=== PATIENT | male | born 1965 | race African-American/Black ===

== ENCOUNTER 2020-12-08 22:16 | Inpatient (IN) | payer MEDICAID ==
[~2020-12-08] VITALS: Ht 175.3 cm; Wt 127.0 kg
[2020-12-08 22:20] VITALS: BP 142/79
[2020-12-08] MEDS ORDERED: ONDANSETRON HCL 4MG/2ML INJ IV PRN (23:30)
[2020-12-08] MEDS ORDERED: CLONIDINE 0.1MG TABLET PO PRN (23:30)
[2020-12-08] MEDS ORDERED: HYDROCODONE/ACETAMINOPHEN 5/325MG TABLET PO PRN (23:30)
[2020-12-08] MEDS ORDERED: ACETAMINOPHEN 325MG TABLET PO PRN ×2 (23:30)
[2020-12-08] MEDS ORDERED: NON FORMULARY PATIENT HOME MED XX SCH (23:30)
[2020-12-08] MEDS ORDERED: NALOXONE HCL 0.4MG/ML VIAL IV PRN (23:45)
[2020-12-09] MEDS ORDERED: ATOR-2 PO (05:43)
[2020-12-09] MEDS ORDERED: ESCI-7 PO (05:43)
[2020-12-09] MEDS ORDERED: ERGO500013 (05:43)
[2020-12-09] MEDS ORDERED: ALBU90AE INH (05:43)
[2020-12-09] MEDS ORDERED: TEMA15CA PO (05:43)
[2020-12-09] MEDS ORDERED: FINA5TAB11 PO (05:43)
[2020-12-09] MEDS ORDERED: AMLO5TAB88 PO (05:43)
[2020-12-09] MEDS ORDERED: FOLI-43 PO (05:43)
[2020-12-09] MEDS ORDERED: LEVE500T19 PO (05:43)
[2020-12-09] MEDS ORDERED: DOXE10CA2 PO (05:43)
[2020-12-09] MEDS ORDERED: TAMS-11 PO (05:43)
[2020-12-09] MEDS ORDERED: LISI-186 PO (05:43)
[2020-12-09 07:01] LABS: CHLORIDE 109 mEq/L (98-107)
[2020-12-09 07:33] LABS: BASOPHILS % 0.6 % (0.0-2.0); EOSINOPHILS % 4.8 % (0.0-5.0); HEMATOCRIT. 36.8 % (42.0-52.0); HEMOGLOBIN. 12.1 g/dL (14.0-18.0); LYMPHOCYTES % 45.4 % (20.0-50.0); MEAN CORPUSCULAR HEMOGLOBIN 28.1 pg (28.0-32.0); MEAN CORPUSCULAR VOLUME 85.3 fL (80.0-94.0); MEAN PLATELET VOLUME 7.9 fl (7.4-10.4); MONOCYTES % 12.5 % (2.0-8.0); NEUTROPHILS % 36.7 % (40.0-76.0); PLATELET 219 x1000/uL (130-400); RED BLOOD CELL COUNT 4.31 mill/uL (4.7-6.1); RED CELL DISTRIBUTION WIDTH 13.9 % (11.6-14.6)
[2020-12-09 07:54] VITALS: BP 124/71
[2020-12-09] MEDS: ENOXAPARIN 30MG/0.3ML SYR SUBCUT SCH ×2 (08:39→21:02)
[2020-12-09] MEDS: LIDOCAINE 5% PATCH TOP SCH (08:39)
[2020-12-09] MEDS: CLOPIDOGREL 75MG TABLET PO SCH (08:40)
[2020-12-09] MEDS: FINASTERIDE 5MG TABLET PO SCH (08:40)
[2020-12-09] MEDS: LEVETIRACETAM 500MG TABLET PO SCH ×2 (08:40→21:00)
[2020-12-09] MEDS: LISINOPRIL 2.5MG TABLET PO SCH (08:40)
[2020-12-09] MEDS: ASPIRIN 81MG TABLET PO SCH (08:41)
[2020-12-09] MEDS: TAMSULOSIN HCL 0.4MG SR CAPSULE PO SCH (08:41)
[2020-12-09] MEDS ORDERED: ENOXAPARIN 40MG/0.4ML SYR SUBCUT SCH (09:00)
[2020-12-09] MEDS ORDERED: LIDOCAINE 5% PATCH TOP SCH (09:00)
[2020-12-09 20:00] VITALS: BP 139/90
[2020-12-09] MEDS: ATORVASTATIN CALCIUM 40MG TABLET PO SCH (21:00)
[2020-12-09] MEDS: DOXEPIN HCL 10MG CAPSULE PO SCH (21:01)
[2020-12-10 07:53] VITALS: BP 142/61
[2020-12-10 08:52] LABS: CHLORIDE 110 mEq/L (98-107)
[2020-12-10 08:59] LABS: TOTAL IRON BINDING CAPACITY 266 ug/dL (250-450)
[2020-12-10 09:00] LABS: LDL CHOLESTEROL 45 mg/dL (5-100)
[2020-12-10 09:01] LABS: HDL CHOLESTEROL 48 mg/dL (40-59)
[2020-12-10 09:05] LABS: BASOPHILS % 0.4 % (0.0-2.0); EOSINOPHILS % 5.1 % (0.0-5.0); HEMATOCRIT. 36.7 % (42.0-52.0); HEMOGLOBIN. 12.3 g/dL (14.0-18.0); LYMPHOCYTES % 45.6 % (20.0-50.0); MEAN CORPUSCULAR HEMOGLOBIN 28.3 pg (28.0-32.0); MEAN CORPUSCULAR VOLUME 84.5 fL (80.0-94.0); MEAN PLATELET VOLUME 8.1 fl (7.4-10.4); MONOCYTES % 10.9 % (2.0-8.0); PLATELET 232 x1000/uL (130-400); RED BLOOD CELL COUNT 4.35 mill/uL (4.7-6.1); RED CELL DISTRIBUTION WIDTH 13.7 % (11.6-14.6)
[2020-12-10] MEDS: ASPIRIN 81MG TABLET PO SCH (09:08)
[2020-12-10] MEDS: CLOPIDOGREL 75MG TABLET PO SCH (09:08)
[2020-12-10] MEDS: TAMSULOSIN HCL 0.4MG SR CAPSULE PO SCH (09:08)
[2020-12-10] MEDS: FINASTERIDE 5MG TABLET PO SCH (09:09)
[2020-12-10] MEDS: LEVETIRACETAM 500MG TABLET PO SCH ×2 (09:09→21:48)
[2020-12-10] MEDS: LISINOPRIL 2.5MG TABLET PO SCH (09:10)
[2020-12-10] MEDS: LIDOCAINE 5% PATCH TOP SCH (09:10)
[2020-12-10] MEDS: ENOXAPARIN 30MG/0.3ML SYR SUBCUT SCH ×2 (09:11→21:47)
[2020-12-10 09:23] LABS: VITAMIN B12 SERUM 511 pg/mL (211-911)
[2020-12-10 09:26] LABS: FOLIC ACID (FOLATE) SERUM > 20.00 ng/mL (>5.38)
[2020-12-10 10:05] LABS: FERRITIN 216 ng/mL (22-322); PROSTRATE SPECIFIC AG TOTAL 0.28 ng/mL (0.0-4.0)
[2020-12-10] MEDS ORDERED: CYANOCOBALAMIN 1000MCG/ML VIAL IM NR (13:00)
[2020-12-10 20:00] VITALS: BP 119/64
[2020-12-10] MEDS: MUPIROCIN 2% OINT 22GM NS SCH (21:47)
[2020-12-10] MEDS: ATORVASTATIN CALCIUM 40MG TABLET PO SCH (21:48)
[2020-12-10] MEDS: DOXEPIN HCL 10MG CAPSULE PO SCH (21:48)
[2020-12-11] MEDS ORDERED: CYANOCOBALAMIN 1000MCG/ML VIAL IM NR (06:45)
[2020-12-11 07:42] VITALS: BP 131/71
[2020-12-11] MEDS: FINASTERIDE 5MG TABLET PO SCH (08:25)
[2020-12-11] MEDS: LISINOPRIL 2.5MG TABLET PO SCH (08:25)
[2020-12-11] MEDS: LEVETIRACETAM 500MG TABLET PO SCH ×2 (08:25→21:20)
[2020-12-11] MEDS: CLOPIDOGREL 75MG TABLET PO SCH (08:25)
[2020-12-11] MEDS: ENOXAPARIN 30MG/0.3ML SYR SUBCUT SCH ×2 (08:25→21:21)
[2020-12-11] MEDS: TAMSULOSIN HCL 0.4MG SR CAPSULE PO SCH (08:25)
[2020-12-11] MEDS: LIDOCAINE 5% PATCH TOP SCH (08:26)
[2020-12-11] MEDS: ASPIRIN 81MG TABLET PO SCH (08:26)
[2020-12-11] MEDS: MUPIROCIN 2% OINT 22GM NS SCH ×2 (08:27→21:21)
[2020-12-11 20:00] VITALS: BP 112/67
[2020-12-11] MEDS: ATORVASTATIN CALCIUM 40MG TABLET PO SCH (21:20)
[2020-12-11] MEDS: DOXEPIN HCL 10MG CAPSULE PO SCH (21:20)
[2020-12-12 08:00] VITALS: BP 130/88
[2020-12-12] MEDS: ENOXAPARIN 30MG/0.3ML SYR SUBCUT SCH ×2 (08:31→21:12)
[2020-12-12] MEDS: LEVETIRACETAM 500MG TABLET PO SCH ×2 (08:32→21:12)
[2020-12-12] MEDS: CLOPIDOGREL 75MG TABLET PO SCH (08:32)
[2020-12-12] MEDS: ASPIRIN 81MG TABLET PO SCH (08:32)
[2020-12-12] MEDS: TAMSULOSIN HCL 0.4MG SR CAPSULE PO SCH (08:32)
[2020-12-12] MEDS: FINASTERIDE 5MG TABLET PO SCH (08:33)
[2020-12-12] MEDS: LISINOPRIL 2.5MG TABLET PO SCH (08:33)
[2020-12-12] MEDS: LIDOCAINE 5% PATCH TOP SCH (08:33)
[2020-12-12] MEDS: MUPIROCIN 2% OINT 22GM NS SCH ×2 (08:33→21:11)
[2020-12-12 20:00] VITALS: BP 119/73
[2020-12-12] MEDS: ATORVASTATIN CALCIUM 40MG TABLET PO SCH (21:12)
[2020-12-12] MEDS: DOXEPIN HCL 10MG CAPSULE PO SCH (21:12)
[2020-12-13 06:52] LABS: CHLORIDE 113 mEq/L (98-107)
[2020-12-13 06:55] LABS: BASOPHILS % 0.5 % (0.0-2.0); EOSINOPHILS % 5.5 % (0.0-5.0); HEMOGLOBIN. 12.5 g/dL (14.0-18.0); LYMPHOCYTES % 45.7 % (20.0-50.0); MEAN CORPUSCULAR VOLUME 84.8 fL (80.0-94.0); MEAN PLATELET VOLUME 8.1 fl (7.4-10.4); MONOCYTES % 12.7 % (2.0-8.0); NEUTROPHILS % 35.6 % (40.0-76.0); PLATELET 225 x1000/uL (130-400); RED BLOOD CELL COUNT 4.48 mill/uL (4.7-6.1); RED CELL DISTRIBUTION WIDTH 13.6 % (11.6-14.6)
[2020-12-13 08:00] VITALS: BP 119/67
[2020-12-13] MEDS: ENOXAPARIN 30MG/0.3ML SYR SUBCUT SCH ×2 (08:36→21:19)
[2020-12-13] MEDS: LISINOPRIL 2.5MG TABLET PO SCH (08:36)
[2020-12-13] MEDS: CLOPIDOGREL 75MG TABLET PO SCH (08:37)
[2020-12-13] MEDS: FINASTERIDE 5MG TABLET PO SCH (08:37)
[2020-12-13] MEDS: MUPIROCIN 2% OINT 22GM NS SCH ×2 (08:37→21:21)
[2020-12-13] MEDS: ASPIRIN 81MG TABLET PO SCH (08:37)
[2020-12-13] MEDS: LEVETIRACETAM 500MG TABLET PO SCH ×2 (08:37→21:19)
[2020-12-13] MEDS: TAMSULOSIN HCL 0.4MG SR CAPSULE PO SCH (08:37)
[2020-12-13] MEDS: LIDOCAINE 5% PATCH TOP SCH (08:38)
[2020-12-13 20:00] VITALS: BP 115/66
[2020-12-13] MEDS: DOXEPIN HCL 10MG CAPSULE PO SCH (21:00)
[2020-12-13] MEDS: ATORVASTATIN CALCIUM 40MG TABLET PO SCH (21:20)
[2020-12-14 08:00] VITALS: BP 115/75
[2020-12-14] MEDS: LISINOPRIL 2.5MG TABLET PO SCH (09:00)
[2020-12-14] MEDS: ENOXAPARIN 30MG/0.3ML SYR SUBCUT SCH ×2 (09:00→20:15)
[2020-12-14] MEDS: CLOPIDOGREL 75MG TABLET PO SCH (09:01)
[2020-12-14] MEDS: TAMSULOSIN HCL 0.4MG SR CAPSULE PO SCH (09:01)
[2020-12-14] MEDS: FINASTERIDE 5MG TABLET PO SCH (09:01)
[2020-12-14] MEDS: LEVETIRACETAM 500MG TABLET PO SCH ×2 (09:01→20:14)
[2020-12-14] MEDS: ASPIRIN 81MG TABLET PO SCH (09:01)
[2020-12-14] MEDS: MUPIROCIN 2% OINT 22GM NS SCH ×2 (09:02→20:13)
[2020-12-14] MEDS: LIDOCAINE 5% PATCH TOP SCH (09:03)
[2020-12-14 11:54] LABS: HEPATITIS B SURFACE ANTIGEN NEGATIVE
[2020-12-14 12:24] LABS: HEPATITIS A AB IGM NEGATIVE (NEGATIVE)
[2020-12-14] MEDS ORDERED: TRIAMCINOLONE ACETONIDE 40MG/ML 1ML VIAL IM NR (12:45)
[2020-12-14] MEDS ORDERED: LIDOCAINE HCL/PF 1% 10 MG/ML 5ML VIAL INFIL NR (14:00)
[2020-12-14] MEDS ORDERED: ETHYL CHLORIDE CAN TOP NR (14:00)
[2020-12-14 20:00] VITALS: BP 125/62
[2020-12-14] MEDS: ATORVASTATIN CALCIUM 40MG TABLET PO SCH (20:14)
[2020-12-14] MEDS: DOXEPIN HCL 10MG CAPSULE PO SCH (20:15)
[2020-12-14] MEDS ORDERED: HYDROCODONE/ACETAMINOPHEN 5/325MG TABLET PO PRN (23:45)
[2020-12-15 08:00] VITALS: BP 125/75
[2020-12-15] MEDS: LIDOCAINE 5% PATCH TOP SCH (08:53)
[2020-12-15] MEDS: ENOXAPARIN 30MG/0.3ML SYR SUBCUT SCH ×2 (08:53→20:22)
[2020-12-15] MEDS: TAMSULOSIN HCL 0.4MG SR CAPSULE PO SCH (08:54)
[2020-12-15] MEDS: LEVETIRACETAM 500MG TABLET PO SCH ×2 (08:54→20:21)
[2020-12-15] MEDS: LISINOPRIL 2.5MG TABLET PO SCH (08:54)
[2020-12-15] MEDS: ASPIRIN 81MG TABLET PO SCH (08:54)
[2020-12-15] MEDS: CLOPIDOGREL 75MG TABLET PO SCH (08:54)
[2020-12-15] MEDS: MUPIROCIN 2% OINT 22GM NS SCH (09:00)
[2020-12-15] MEDS: FINASTERIDE 5MG TABLET PO SCH (09:01)
[2020-12-15 17:06] LABS: 25-HYDROXY VITAMIN D3 10 ng/mL (.)
[2020-12-15 18:25] LABS: AMYLASE 86 IU/L (25-115)
[2020-12-15 20:00] VITALS: BP 133/69
[2020-12-15] MEDS: ATORVASTATIN CALCIUM 40MG TABLET PO SCH (20:22)
[2020-12-15] MEDS: DOXEPIN HCL 10MG CAPSULE PO SCH (20:22)
[2020-12-16 08:00] VITALS: BP 144/74
[2020-12-16 09:22] LABS: BASOPHILS % 0.6 % (0.0-2.0); EOSINOPHILS % 1.2 % (0.0-5.0); HEMATOCRIT. 38.6 % (42.0-52.0); HEMOGLOBIN. 12.7 g/dL (14.0-18.0); LYMPHOCYTES % 25.8 % (20.0-50.0); MEAN CORPUSCULAR HEMOGLOBIN 27.8 pg (28.0-32.0); MEAN CORPUSCULAR VOLUME 84.8 fL (80.0-94.0); MEAN PLATELET VOLUME 8.2 fl (7.4-10.4); MONOCYTES % 4.9 % (2.0-8.0); NEUTROPHILS % 67.5 % (40.0-76.0); PLATELET 240 x1000/uL (130-400); RED BLOOD CELL COUNT 4.56 mill/uL (4.7-6.1); RED CELL DISTRIBUTION WIDTH 13.5 % (11.6-14.6)
[2020-12-16 09:30] LABS: CHLORIDE 111 mEq/L (98-107)
[2020-12-16 09:36] LABS: AMYLASE 77 IU/L (25-115)
[2020-12-16] MEDS: ENOXAPARIN 30MG/0.3ML SYR SUBCUT SCH ×2 (09:55→20:34)
[2020-12-16] MEDS: FINASTERIDE 5MG TABLET PO SCH (09:56)
[2020-12-16] MEDS: LISINOPRIL 2.5MG TABLET PO SCH (09:56)
[2020-12-16] MEDS: CLOPIDOGREL 75MG TABLET PO SCH (09:57)
[2020-12-16] MEDS: LIDOCAINE 5% PATCH TOP SCH (09:57)
[2020-12-16] MEDS: ASPIRIN 81MG TABLET PO SCH (09:58)
[2020-12-16] MEDS: TAMSULOSIN HCL 0.4MG SR CAPSULE PO SCH (09:58)
[2020-12-16] MEDS: LEVETIRACETAM 500MG TABLET PO SCH ×2 (09:58→20:34)
[2020-12-16] MEDS: ERGOCALCIFEROL 50000UNITS CAPSULE PO SCH (14:31)
[2020-12-16 16:40] LABS: CLARITY URINE CLEAR (CLEAR); COLOR URINE YELLOW (YELLOW); KETONES URINE NEGATIVE (NEGATIVE); LEUKOCYTE ESTERASE URINE NEGATIVE (NEGATIVE); NITRITE URINE NEGATIVE (NEGATIVE); OCCULT BLOOD URINE NEGATIVE (NEGATIVE); PH URINE 6.5 (4.5-8.0); PROTEIN URINE NEGATIVE (NEGATIVE); SPECIFIC GRAVITY URINE 1.025 (1.005-1.030)
[2020-12-16 20:00] VITALS: BP 119/78
[2020-12-16] MEDS: DOXEPIN HCL 10MG CAPSULE PO SCH (20:34)
[2020-12-16] MEDS: ATORVASTATIN CALCIUM 40MG TABLET PO SCH (20:34)
[2020-12-17 06:50] LABS: BASOPHILS % 0.5 % (0.0-2.0); EOSINOPHILS % 0.3 % (0.0-5.0); HEMATOCRIT. 39.1 % (42.0-52.0); HEMOGLOBIN. 12.9 g/dL (14.0-18.0); LYMPHOCYTES % 24.2 % (20.0-50.0); MEAN PLATELET VOLUME 7.9 fl (7.4-10.4); MONOCYTES % 7.2 % (2.0-8.0); NEUTROPHILS % 67.8 % (40.0-76.0); PLATELET 245 x1000/uL (130-400); RED CELL DISTRIBUTION WIDTH 13.8 % (11.6-14.6)
[2020-12-17 06:57] LABS: CHLORIDE 112 mEq/L (98-107)
[2020-12-17 07:02] LABS: AMYLASE 69 IU/L (25-115)
[2020-12-17 07:59] VITALS: BP 129/65
[2020-12-17] MEDS: LEVETIRACETAM 500MG TABLET PO SCH ×2 (08:11→20:19)
[2020-12-17] MEDS: TAMSULOSIN HCL 0.4MG SR CAPSULE PO SCH (08:11)
[2020-12-17] MEDS: ASPIRIN 81MG TABLET PO SCH (08:11)
[2020-12-17] MEDS: FINASTERIDE 5MG TABLET PO SCH (08:12)
[2020-12-17] MEDS: LIDOCAINE 5% PATCH TOP SCH (08:12)
[2020-12-17] MEDS: CLOPIDOGREL 75MG TABLET PO SCH (08:12)
[2020-12-17] MEDS: LISINOPRIL 2.5MG TABLET PO SCH (08:12)
[2020-12-17] MEDS: ENOXAPARIN 30MG/0.3ML SYR SUBCUT SCH ×2 (08:13→20:18)
[2020-12-17 20:00] VITALS: BP 118/61
[2020-12-17] MEDS: ATORVASTATIN CALCIUM 40MG TABLET PO SCH (20:19)
[2020-12-17] MEDS: DOXEPIN HCL 10MG CAPSULE PO SCH (20:45)
[2020-12-18 08:00] VITALS: BP 135/80
[2020-12-18] MEDS: LEVETIRACETAM 500MG TABLET PO SCH ×2 (10:07→21:05)
[2020-12-18] MEDS: ASPIRIN 81MG TABLET PO SCH (10:07)
[2020-12-18] MEDS: CLOPIDOGREL 75MG TABLET PO SCH (10:07)
[2020-12-18] MEDS: TAMSULOSIN HCL 0.4MG SR CAPSULE PO SCH (10:08)
[2020-12-18] MEDS: FINASTERIDE 5MG TABLET PO SCH (10:08)
[2020-12-18] MEDS: LISINOPRIL 2.5MG TABLET PO SCH (10:08)
[2020-12-18] MEDS: LIDOCAINE 5% PATCH TOP SCH (10:09)
[2020-12-18] MEDS: ENOXAPARIN 30MG/0.3ML SYR SUBCUT SCH ×2 (10:10→21:05)
[2020-12-18 10:38] LABS: BASOPHILS % 0.7 % (0.0-2.0); EOSINOPHILS % 0.8 % (0.0-5.0); HEMATOCRIT. 42.4 % (42.0-52.0); HEMOGLOBIN. 13.8 g/dL (14.0-18.0); LYMPHOCYTES % 29.5 % (20.0-50.0); MEAN CORPUSCULAR HEMOGLOBIN 27.6 pg (28.0-32.0); MEAN PLATELET VOLUME 8.5 fl (7.4-10.4); MONOCYTES % 5.5 % (2.0-8.0); NEUTROPHILS % 63.5 % (40.0-76.0); PLATELET 242 x1000/uL (130-400); RED BLOOD CELL COUNT 4.99 mill/uL (4.7-6.1); RED CELL DISTRIBUTION WIDTH 14.2 % (11.6-14.6)
[2020-12-18 10:44] LABS: CHLORIDE 108 mEq/L (98-107)
[2020-12-18 10:50] LABS: AMYLASE 70 IU/L (25-115)
[2020-12-18 20:30] VITALS: BP 126/68
[2020-12-18] MEDS: ATORVASTATIN CALCIUM 40MG TABLET PO SCH (21:04)
[2020-12-18] MEDS: DOXEPIN HCL 10MG CAPSULE PO SCH (21:04)
[2020-12-19 08:20] VITALS: BP 122/73
[2020-12-19] MEDS: FINASTERIDE 5MG TABLET PO SCH (08:48)
[2020-12-19] MEDS: LISINOPRIL 2.5MG TABLET PO SCH (08:49)
[2020-12-19] MEDS: TAMSULOSIN HCL 0.4MG SR CAPSULE PO SCH (08:50)
[2020-12-19] MEDS: CLOPIDOGREL 75MG TABLET PO SCH (08:50)
[2020-12-19] MEDS: ASPIRIN 81MG TABLET PO SCH (08:51)
[2020-12-19] MEDS: LEVETIRACETAM 500MG TABLET PO SCH ×2 (08:51→20:37)
[2020-12-19] MEDS: ENOXAPARIN 30MG/0.3ML SYR SUBCUT SCH ×2 (08:53→20:39)
[2020-12-19] MEDS: LIDOCAINE 5% PATCH TOP SCH (08:57)
[2020-12-19 09:46] LABS: BASOPHILS % 0.6 % (0.0-2.0); EOSINOPHILS % 1.6 % (0.0-5.0); HEMATOCRIT. 42.1 % (42.0-52.0); HEMOGLOBIN. 13.8 g/dL (14.0-18.0); MEAN CORPUSCULAR VOLUME 85.5 fL (80.0-94.0); MEAN PLATELET VOLUME 8.2 fl (7.4-10.4); NEUTROPHILS % 56.8 % (40.0-76.0); PLATELET 264 x1000/uL (130-400); RED BLOOD CELL COUNT 4.92 mill/uL (4.7-6.1); RED CELL DISTRIBUTION WIDTH 13.8 % (11.6-14.6)
[2020-12-19 09:51] LABS: CHLORIDE 111 mEq/L (98-107)
[2020-12-19 09:54] LABS: AMYLASE 76 IU/L (25-115)
[2020-12-19 20:00] VITALS: BP 128/72
[2020-12-19] MEDS: DOXEPIN HCL 10MG CAPSULE PO SCH (20:37)
[2020-12-19] MEDS: ATORVASTATIN CALCIUM 40MG TABLET PO SCH (20:38)
[2020-12-20 08:17] VITALS: BP 111/78
[2020-12-20] MEDS: ASPIRIN 81MG TABLET PO SCH (08:56)
[2020-12-20] MEDS: LEVETIRACETAM 500MG TABLET PO SCH ×2 (08:57→20:49)
[2020-12-20] MEDS: FINASTERIDE 5MG TABLET PO SCH (08:57)
[2020-12-20] MEDS: CLOPIDOGREL 75MG TABLET PO SCH (08:57)
[2020-12-20] MEDS: TAMSULOSIN HCL 0.4MG SR CAPSULE PO SCH (08:57)
[2020-12-20] MEDS: LISINOPRIL 2.5MG TABLET PO SCH (08:57)
[2020-12-20] MEDS: ENOXAPARIN 30MG/0.3ML SYR SUBCUT SCH ×2 (08:58→20:50)
[2020-12-20] MEDS: LIDOCAINE 5% PATCH TOP SCH (08:59)
[2020-12-20 20:00] VITALS: BP 118/67
[2020-12-20] MEDS: ATORVASTATIN CALCIUM 40MG TABLET PO SCH (20:49)
[2020-12-20] MEDS: DOXEPIN HCL 10MG CAPSULE PO SCH (20:49)
[2020-12-21 08:00] VITALS: BP 120/71
[2020-12-21 08:09] VITALS: BP 120/71
[2020-12-21] MEDS ORDERED: ASPI-1160 PO (08:15)
[2020-12-21] MEDS ORDERED: TAMS-11 PO (08:15)
[2020-12-21] MEDS ORDERED: FINA5TAB11 PO (08:15)
[2020-12-21] MEDS ORDERED: KEPP500 PO (08:15)
[2020-12-21] MEDS ORDERED: LIP40 PO (08:15)
[2020-12-21] MEDS ORDERED: CLOP75TA15 PO (08:15)
[2020-12-21] MEDS: LEVETIRACETAM 500MG TABLET PO SCH ×2 (09:34→21:24)
[2020-12-21] MEDS: LISINOPRIL 2.5MG TABLET PO SCH (09:35)
[2020-12-21] MEDS: FINASTERIDE 5MG TABLET PO SCH (09:35)
[2020-12-21] MEDS: CLOPIDOGREL 75MG TABLET PO SCH (09:35)
[2020-12-21] MEDS: TAMSULOSIN HCL 0.4MG SR CAPSULE PO SCH (09:35)
[2020-12-21] MEDS: ENOXAPARIN 30MG/0.3ML SYR SUBCUT SCH ×2 (09:36→21:25)
[2020-12-21] MEDS: ASPIRIN 81MG TABLET PO SCH (09:36)
[2020-12-21] MEDS: LIDOCAINE 5% PATCH TOP SCH (09:37)
[2020-12-21 20:00] VITALS: BP 117/68
[2020-12-21] MEDS: ATORVASTATIN CALCIUM 40MG TABLET PO SCH (21:24)
[2020-12-21] MEDS: DOXEPIN HCL 10MG CAPSULE PO SCH (21:24)
[2020-12-22 08:00] VITALS: BP 131/71
[2020-12-22] MEDS: LISINOPRIL 2.5MG TABLET PO SCH (09:07)
[2020-12-22] MEDS: TAMSULOSIN HCL 0.4MG SR CAPSULE PO SCH (09:08)
[2020-12-22] MEDS: ASPIRIN 81MG TABLET PO SCH (09:08)
[2020-12-22] MEDS: FINASTERIDE 5MG TABLET PO SCH (09:08)
[2020-12-22] MEDS: LEVETIRACETAM 500MG TABLET PO SCH ×2 (09:08→20:10)
[2020-12-22] MEDS: CLOPIDOGREL 75MG TABLET PO SCH (09:08)
[2020-12-22] MEDS: ENOXAPARIN 30MG/0.3ML SYR SUBCUT SCH ×2 (09:09→20:11)
[2020-12-22] MEDS: LIDOCAINE 5% PATCH TOP SCH (09:10)
[2020-12-22 20:00] VITALS: BP 125/66
[2020-12-22] MEDS: ATORVASTATIN CALCIUM 40MG TABLET PO SCH (20:11)
[2020-12-22] MEDS: DOXEPIN HCL 10MG CAPSULE PO SCH (20:11)
[2020-12-23 08:21] VITALS: BP 114/76
[2020-12-23] MEDS: ASPIRIN 81MG TABLET PO SCH (09:54)
[2020-12-23] MEDS: LEVETIRACETAM 500MG TABLET PO SCH ×2 (09:55→20:09)
[2020-12-23] MEDS: CLOPIDOGREL 75MG TABLET PO SCH (09:55)
[2020-12-23] MEDS: LISINOPRIL 2.5MG TABLET PO SCH (09:55)
[2020-12-23] MEDS: FINASTERIDE 5MG TABLET PO SCH (09:55)
[2020-12-23] MEDS: ERGOCALCIFEROL 50000UNITS CAPSULE PO SCH (09:55)
[2020-12-23] MEDS: TAMSULOSIN HCL 0.4MG SR CAPSULE PO SCH (09:55)
[2020-12-23] MEDS: LIDOCAINE 5% PATCH TOP SCH (09:56)
[2020-12-23] MEDS: ENOXAPARIN 30MG/0.3ML SYR SUBCUT SCH ×2 (09:57→21:15)
[2020-12-23 20:00] VITALS: BP 124/54
[2020-12-23] MEDS: DOXEPIN HCL 10MG CAPSULE PO SCH (20:09)
[2020-12-23] MEDS: ATORVASTATIN CALCIUM 40MG TABLET PO SCH (20:09)
[2020-12-24 07:09] VITALS: BP 122/80
[2020-12-24] MEDS: TAMSULOSIN HCL 0.4MG SR CAPSULE PO SCH (10:48)
[2020-12-24] MEDS: ASPIRIN 81MG TABLET PO SCH (10:49)
[2020-12-24] MEDS: LISINOPRIL 2.5MG TABLET PO SCH (10:49)
[2020-12-24] MEDS: ENOXAPARIN 30MG/0.3ML SYR SUBCUT SCH ×2 (10:50→21:47)
[2020-12-24] MEDS: FINASTERIDE 5MG TABLET PO SCH (10:50)
[2020-12-24] MEDS: LEVETIRACETAM 500MG TABLET PO SCH ×2 (10:50→21:45)
[2020-12-24] MEDS: CLOPIDOGREL 75MG TABLET PO SCH (10:50)
[2020-12-24] MEDS: LIDOCAINE 5% PATCH TOP SCH (10:52)
[2020-12-24 20:00] VITALS: BP 127/61
[2020-12-24] MEDS: ATORVASTATIN CALCIUM 40MG TABLET PO SCH (21:45)
[2020-12-24] MEDS: DOXEPIN HCL 10MG CAPSULE PO SCH (21:45)
[2020-12-25 08:00] VITALS: BP 168/95
[2020-12-25] MEDS: CLOPIDOGREL 75MG TABLET PO SCH (08:43)
[2020-12-25] MEDS: LISINOPRIL 2.5MG TABLET PO SCH (08:43)
[2020-12-25] MEDS: FINASTERIDE 5MG TABLET PO SCH (08:43)
[2020-12-25] MEDS: ASPIRIN 81MG TABLET PO SCH (08:43)
[2020-12-25] MEDS: LEVETIRACETAM 500MG TABLET PO SCH ×2 (08:43→21:22)
[2020-12-25] MEDS: TAMSULOSIN HCL 0.4MG SR CAPSULE PO SCH (08:44)
[2020-12-25] MEDS: ENOXAPARIN 30MG/0.3ML SYR SUBCUT SCH ×2 (08:44→21:23)
[2020-12-25] MEDS: LIDOCAINE 5% PATCH TOP SCH (08:45)
[2020-12-25 20:00] VITALS: BP 118/64
[2020-12-25] MEDS: ATORVASTATIN CALCIUM 40MG TABLET PO SCH (21:22)
[2020-12-25] MEDS: DOXEPIN HCL 10MG CAPSULE PO SCH (21:22)
[2020-12-26 07:52] VITALS: BP 116/76
[2020-12-26] MEDS: LEVETIRACETAM 500MG TABLET PO SCH (08:30)
[2020-12-26] MEDS: ENOXAPARIN 30MG/0.3ML SYR SUBCUT SCH (08:30)
[2020-12-26] MEDS: LISINOPRIL 2.5MG TABLET PO SCH (08:30)
[2020-12-26] MEDS: ASPIRIN 81MG TABLET PO SCH (08:30)
[2020-12-26] MEDS: LIDOCAINE 5% PATCH TOP SCH (08:31)
[2020-12-26] MEDS: TAMSULOSIN HCL 0.4MG SR CAPSULE PO SCH (08:31)
[2020-12-26] MEDS: CLOPIDOGREL 75MG TABLET PO SCH (08:31)
[2020-12-26] MEDS: FINASTERIDE 5MG TABLET PO SCH (08:31)
[2020-12-26 14:01] VITALS: BP 118/76
== END 2020-12-26 16:25 | disposition home health service (06) | DRG 58 ==
LOC: UNDOADMIN 23:07
PROVIDERS: ADMIT Physical Medicine & Rehabilitation Spinal Cord Injury Medicine; ATTEND Internal Medicine Nephrology
DX: I69.351 Hemiplegia and hemiparesis following cerebral infarction affecting right dominant side (principal); I63.9 Cerebral infarction, unspecified; E44.0 Moderate protein-calorie malnutrition; I27.20 Pulmonary hypertension, unspecified; I42.9 Cardiomyopathy, unspecified; I11.0 Hypertensive heart disease with heart failure; I50.30 Unspecified diastolic (congestive) heart failure; K86.89 Other specified diseases of pancreas; D64.9 Anemia, unspecified; R47.01 Aphasia; B19.20 Unspecified viral hepatitis C without hepatic coma; E66.9 Obesity, unspecified; I11.9 Hypertensive heart disease without heart failure; R29.6 Repeated falls; K76.0 Fatty (change of) liver, not elsewhere classified; M19.90 Unspecified osteoarthritis, unspecified site; M48.00 Spinal stenosis, site unspecified; N40.1 Benign prostatic hyperplasia with lower urinary tract symptoms; R35.0 Frequency of micturition; R35.1 Nocturia; R47.1 Dysarthria and anarthria; R53.81 Other malaise; S43.101A Unspecified dislocation of right acromioclavicular joint, initial encounter; X58.XXXA Exposure to other specified factors, initial encounter; M75.01 Adhesive capsulitis of right shoulder; Z68.41 Body mass index [BMI] 40.0-44.9, adult; Z82.49 Family history of ischemic heart disease and other diseases of the circulatory system; Z87.891 Personal history of nicotine dependence; Y93.89 Activity, other specified; Y92.89 Other specified places as the place of occurrence of the external cause; Y99.8 Other external cause status
CPT/HCPCS: 36415; 73030; 74181; 76700; 80048; 80053; 80061; 80076; 81003; 82150; 82248; 82306; 82607; 82728; 82746; 83036; 83540; 83550; 83735; 84134; 84153; 84443; 85025; 86301; 86705; 86709; 86803; 87340; 92523; 92610; 93970; 94660; 97110; 97112; 97116; 97150; 97162; 97166; 97530; 97535; J1650; J3301; J3420; J3490; G0103